=== PATIENT | male | born 1950 | race Caucasian/White ===

== ENCOUNTER 2020-11-28 16:47 | Emergency (ER) | payer MEDICARE ==
[2020-11-28] MEDS ORDERED: HYDROCODONE/APAP 7.5/325 MG TAB ONE (19:52)
[2020-11-28] MEDS ORDERED: TETANUS & DIPHTHERIA TOX,ADULT 0.5 ML VIAL ONE (19:57)
--- NOTE | 2020-11-28 20:12 | RAD REPORT ---
EXAM DESCRIPTION: RAD - Hand Right 3 View - 11/28/2020 8:03 pm CLINICAL HISTORY: PAIN COMPARISON: Hand Right 3 View dated 02/03/2017 FINDINGS: Soft tissue laceration with radiopaque debris noted near the base of the fourth finger. No acute fracture evident.
[2020-11-28] MEDS ORDERED: BUPIVACAINE 0.5% PF 10 ML VIAL ONE (20:14)
[2020-11-28] MEDS ORDERED: LIDOCAINE 1% MPF 5 ML VIAL ONE (20:14)
--- NOTE | 2020-11-28 21:14 | ER ---
Nurse's Notes 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 ca1 Bleeding controlled. Applied dressing at registration. Lac is between ring and middle finger. Coronavirus screen: Client denies travel out of the [place] in the last 14 days. At this time, the client does not indicate any symptoms associated with coronavirus-19. Ebola Screen: Patient negative for fever greater than or equal to 101.5 degrees Fahrenheit, and additional compatible Ebola Virus Disease symptoms Patient denies exposure to infectious person. Patient denies travel to an Ebola-affected area in the 21 days before illness onset. No symptoms or risks identified at this time. Complicating Factors: There are no complicating factors for this patient. Initial Sepsis Screen: Does the patient meet any 2 criteria? No. Patient's initial sepsis screen is negative. Does the patient have a suspected source of infection? No. Patient's initial sepsis screen is negative. Risk Assessment: Do you want to hurt yourself or someone else? Patient reports no desire to harm self or others. Onset of symptoms was November 28, 2020. 17:13 Method Of Arrival: Ambulatory ca1 17:13 Acuity: KARON 4 ca1 Historical: - Allergies: 17:17 No Known Allergies; ca1 - Home Meds: 17:17 memantine oral oral [Active]; ca1 - PMHx: 17:17 None; ca1 - PSHx: 17:17 None; ca1 - Immunization history:: Last tetanus immunization: unknown, Pneumococcal vaccine is not up to date, Flu vaccine is not up to date. - Social history:: Smoking status: Patient denies any tobacco usage or history of. Vital Signs: 17:13 BP 156 / 83; Pulse 59; Resp 16 S; Temp 97.1(TE); Pulse Ox 100% on R/A; Weight 81.65 kg ca1 (R); Height 5 ft. 8 in. (172.72 cm) (R); Pain 7/10; 17:13 Body Mass Index 27.37 (81.65 kg, 172.72 cm) ca1 ED Course: 16:48 Patient arrived in ED. as 17:16 Triage completed. ca1 17:17 Arm band placed on right wrist. ca1 19:22 Derrick Denny PA is PHCP. cp 19:22 Pete Moyer MD is Attending Physician. cp 19:25 Fiona Luna, RN is Primary Nurse. dm5 21:43 Orthoglass splint: Ulnar gutter/Boxer splint applied on right forearm. dh4 Administered Medications: 19:40 Drug: Hydrocodone-Acetaminophen (7.5 mg-325 mg) 1 tabs Route: PO; dm5 19:48 Drug: Tetanus-Diphtheria Toxoid Adult 0.5 ml {[employer]: [employer]. Exp: dm5 02/15/2022. Lot #: [id number]. } Route: IM; Site: right deltoid; 20:00 Drug: Lidocaine (1 %) 10 ml Volume: 20 ml; Route: Infiltration; dm5 20:00 Drug: Marcaine (0.5 %) 10 ml Volume: 10 ml; Route: Infiltration; dm5 21:31 Drug: KeFLEX 500 mg Route: PO; dm5 Outcome: 21:13 Discharge ordered by MD. cp 21:31 Discharged to home ambulatory, with friend. dm5 21:31 Condition: good 21:31 Discharge instructions given to patient, Instructed on discharge instructions, follow up and referral plans. medication usage, Demonstrated understanding of instructions, follow-up care, medications, Prescriptions given X 1. 21:47 Patient left the ED. iw Signatures: Fiona Luna, RN RN Belinda Evans Irene RN RN iw Derrick Denny PA PA cp Acob, Cheryl, RN RN ca1 Luis Otero [facility]
--- NOTE | 2020-11-28 21:14 | EDPHYS ---
Physician Documentation [facility] Name: Howard Arredondo Age: 70 yrs Sex: Male : 1950 Arrival Date: 11/28/2020 Time: 16:48 Bed 12 Private MD: ED Physician Pete Moyer HPI: 11/28 19:30 This 70 yrs old Male presents to ER via Ambulatory with complaints of cp Laceration To Hand. 19:30 The patient has a laceration occurred at home, and from grinding tool. The cp laceration(s) is(are) located on the web space of third and fourth fingers of right hand. Onset: The symptoms/episode began/occurred just prior to arrival. Associated signs and symptoms: Pertinent negatives: heavy bleeding, numbness distal to injury. Historical: - Allergies: 17:17 No Known Allergies; ca1 - Home Meds: 17:17 memantine oral oral [Active]; ca1 - PMHx: 17:17 None; ca1 - PSHx: 17:17 None; ca1 - Immunization history:: Last tetanus immunization: unknown, Pneumococcal vaccine is not up to date, Flu vaccine is not up to date. - Social history:: Smoking status: Patient denies any tobacco usage or history of. ROS: 19:35 Skin: Positive for laceration(s), of the right hand. cp 19:35 Constitutional: Negative for fever. cp 19:35 Neuro: Negative for numbness. 19:35 All other systems are negative. Exam: 19:45 Constitutional: The patient appears in no acute distress, alert, awake, non-toxic, well cp developed, well nourished. 19:45 Musculoskeletal/extremity: Extremities: grossly normal except: noted in the dorsal side cp web space right third and fourth fingers: laceration, Perfusion: the extremity is normally perfused throughout, Sensation intact. Tendon exam: specific tendon testing normal through active and passive range of motion 19:45 Skin: injury, laceration(s), the wound is approximately 3 cm(s), of the dorsal side web space of right third and fourth fingers, that can be described as contaminated, foreign body containing, irregular, with mild bleeding. Vital Signs: 17:13 BP 156 / 83; Pulse 59; Resp 16 S; Temp 97.1(TE); Pulse Ox 100% on R/A; Weight 81.65 kg ca1 (R); Height 5 ft. 8 in. (172.72 cm) (R); Pain 7/10; 17:13 Body Mass Index 27.37 (81.65 kg, 172.72 cm) ca1 Procedures: 21:10 Performed wound irrigation and foreign body removal: Wound irrigated under pressure cp with 1000 mL NS. Multiple small metallic particulate removed. Wound explored. No signs of tendon injury. Laceration: 21:10 Wound Repair of 3cm ( 1.2in ) subcutaneous laceration to dorsal aspect web space of cp third and fourth fingers right hand. Irregularly shaped.. Distal neuro/vascular/tendon intact. Anesthesia: Wound infiltrated with 5 mls of Lido/Marcaine. Wound prep: Extensive cleansing by me, Wound irrigation by me, Particulate matter removal of metal by me, Wound explored moderately. Skin closed with 6 4-0 Prolene using simple sutures and sterile technique. Dressed with Bacitracin, 4x4's. Patient tolerated well. MDM: 19:24 Patient medically screened. cp 20:00 Differential diagnosis: superficial laceration, tendon injury, vascular injury, open cp fracture. 21:12 Data reviewed: vital signs, nurses notes, radiologic studies, plain films, I have cp discussed the patient's presentation/case with the attending Emergency Department Physician; and as a result, I will discharge patient. 21:12 Test interpretation: by ED physician or midlevel provider: xrays of right hand negative cp for fracture, show small radiopaque foreign bodies. 21:12 Counseling: I had a detailed discussion with the patient and/or guardian regarding: the cp historical points, exam findings, and any diagnostic results supporting the discharge/admit diagnosis, lab results, radiology results. 21:12 Response to treatment: the patient's symptoms have markedly improved after treatment, cp and as a result, I will discharge patient. 11/28 19:26 Order name: XRAY Hand RIGHT 3 View cp 11/28 20:13 Order name: RAD EDMS 11/28 19:44 Order name: Dressing - Wound; Complete Time: 21:14 cp 11/28 19:44 Order name: Gloves, Sterile; Complete Time: 21:14 cp 11/28 19:44 Order name: Setup Suture Tray; Complete Time: 21:14 cp 11/28 21:04 Order name: Wound dressing; Complete Time: 21:24 cp 11/28 21:04 Order name: Splint - Ulnar Gutter; Complete Time: 21:24 cp Administered Medications: 19:40 Drug: Hydrocodone-Acetaminophen (7.5 mg-325 mg) 1 tabs Route: PO; dm5 19:48 Drug: Tetanus-Diphtheria Toxoid Adult 0.5 ml {[employer] Of [employer]: [employer]. Exp: dm5 02/15/2022. Lot #: [id number]. } Route: IM; Site: right deltoid; 20:00 Drug: Lidocaine (1 %) 10 ml Volume: 20 ml; Route: Infiltration; dm5 20:00 Drug: Marcaine (0.5 %) 10 ml Volume: 10 ml; Route: Infiltration; dm5 21:31 Drug: KeFLEX 500 mg Route: PO; dm5 Disposition: 21:30 Chart complete. cp 11/29 01:50 Co-signature as Attending Physician, Pete Moyer MD. rn Disposition: 11/28/20 21:13 Discharged to Home. Impression: Laceration with foreign body of right hand. - Condition is Stable. - Discharge Instructions: Laceration Care, Adult. - Prescriptions for Keflex 500 mg Oral Capsule - take 1 capsule by ORAL route every 8 hours for 10 days; 30 capsule. - Medication Reconciliation Form, Thank You Letter, Antibiotic Education, Prescription Opioid Use form. - Follow up: Private Physician; When: 1 - 2 days; Reason: Wound Recheck. - Problem is new. - Symptoms have improved. Signatures: Dispatcher [employer] Fiona Spence RN RN dm5 Khushboo Mcdowell RN RN iw Nieto, Roman, MD MD rn Page, Corey, PA PA cp Sandee Mishra RN LACHO ca1 Corrections: (The following items were deleted from the chart) 11/28 21:47 21:13 11/28/2020 21:13 Discharged to Home. Impression: Laceration with foreign body of iw right hand. Condition is Stable. Forms are Medication Reconciliation Form, Thank You Letter, Antibiotic Education, Prescription Opioid Use. Follow up: Private Physician; When: 1 - 2 days; Reason: Wound Recheck. Problem is new. Symptoms have improved. cp
[2020-11-28] MEDS ORDERED: CEPHALEXIN 250 MG CAP ONE (21:42)
[2020-11-28 23:47] VITALS: BP 156/83; TEMP 97.1; O2SAT 100
== END 2020-11-28 21:47 | disposition home or self-care (01) ==
LOC: ER 16:47
PROC: 0HQFXZZ Repair Right Hand Skin, External Approach (ICD-10-PCS; principal; 2020-11-28)
DX: S61.421A Laceration with foreign body of right hand, initial encounter (principal); Z23 Encounter for immunization; W29.8XXA Contact with other powered hand tools and household machinery, initial encounter
CPT/HCPCS: 90471; 90714; 99283

== ENCOUNTER 2021-03-15 21:33 | Emergency (ER) | payer MEDICARE ==
--- OUTSIDE RECORDS SUMMARY | 2021-03-15 21:36 | XMS REPORT | Continuity of Care Document ---
:1950 Author Organization [facility] t Address [address] [place] [address] Care Team Providers Name Role Phone Unavailable Unavailable Unavailable Payers Payer Name Policy Type Policy Number Effective Date Expiration Date S ource Problems This patient has no known problems. Allergies, Adverse Reactions, Alerts Allergy Allergy Status Severity Reaction(s) Onset Inactive Treating Comm ents Source Name Type Date Date Clinician No Known DA Active U [facility] Allergie 02-28 00:00: [address] Medications This patient has no known medications. Procedures This patient has no known procedures. Results Test Description Test Time Test Comments Results Result Comments Source BASIC METABOLIC PANEL 2021-03-02 09:18:00 Test Item Value Reference Range Interpretation Comme nts SODIUM (test code = NA) 137 MMOL/L 137-145 N POTASSIUM (test code = K) 3.8 MMOL/L 3.5-5.1 N CHLORIDE (test code = CL) 103 MMOL/L 98-107 N CARBON DIOXIDE (test code = CO2) 27 MMOL/L 22-30 N GLUCOSE (test code = GLU) 108 MG/DL 74-106 H BLOOD UREA NITROGEN (test code = 17 MG/DL 9-20 N BUN) GLOMERULAR FILTRATION RATE (test > 60 Reporting units: ml/min/1.73 code = GFR) m2 (Modified M DRD Formula)Referen ce Range: > or = 60 ml/min/1.7 3 m2 CREATININE (test code = CREAT) 0.90 MG/DL 0.66-1.25 N CALCIUM (test code = CA) 8.2 MG/DL 8.4-10.2 L PATIENT IS A HARD STICK. UNABLE TO GET BLOOD SAMPLE.NOTIFIED PATIENT CARE STAFF: ON 03/02/21 AT 06[facility] Z.LAB.CGCBC W/AUTO [id number] 08:39:00 Test Item Value Reference Range Interpretation Comments WHITE BLOOD CELL (test code = 11.5 K/MM3 3.8-9.8 H WBC) RED BLOOD CELL (test code = 3.97 M/MM3 3.95-5.67 N RBC) HEMOGLOBIN (test code = HGB) 13.0 G/DL 12.4-16.7 N HEMATOCRIT (test code = HCT) 38.3 % 35.9-49.5 N MEAN CELL VOLUME (test code = 97 fL 81.7-96.1 H MCV) MEAN CELL HGB (test code = MCH) 32.7 pg 27.6-33.2 N MEAN CELL HGB CONCETRATION 33.9 % 32.9-35.5 N (test code = MCHC) RED CELL DISTRIBUTION WIDTH 12.6 % 12.1-15.2 N (test code = RDW) PLATELET COUNT (test code = 131 K/MM3 129-368 N PLT) MEAN PLATELET VOLUME (test code 10.6 fl 7.4-10.4 H = MPV) NEUTROPHIL % (test code = NT%) 66.8 % 43-75 N IMMATURE GRANULOCYTE % (test 0.2 % 0.0-2.0 N code = IG%) LYMPHOCYTE % (test code = LY%) 21.3 % 14-44 N MONOCYTE % (test code = MO%) 10.5 % 4-13 N EOSINOPHIL % (test code = EO%) 0.9 % 0-6 N BASOPHIL % (test code = BA%) 0.3 % 0-2 N NUCLEATED RBC % (test code = 0.0 % 0-1.0 N NRBC%) NEUTROPHIL # (test code = NT#) 7.70 K/mm3 2.0-7.6 H IMMATURE GRANULOCYTE # (test 0.02 x10 3/uL 0-0.03 N code = IG#) LYMPHOCYTE # (test code = LY#) 2.45 K/mm3 1.0-3.8 N MONOCYTE # (test code = MO#) 1.21 K/mm3 0.1-0.8 H EOSINOPHIL # (test code = EO#) 0.10 K/mm3 0.0-0.2 N BASOPHIL # (test code = BA#) 0.03 K/mm3 0.0-0.2 N NUCLEATED RBC # (test code = 0.00 K/mm3 0.0-0.1 N NRBC#) [id number] 08:10:00 Test Item Value Reference Range Interpretation Comments ACT-ISTAT (test code = ACTI) 263 SEC 74-137 H [id number] 07:58:00 Test Item Value Reference Range Interpretation Comments ACT-ISTAT (test code = ACTI) 169 SEC 74-137 H BASIC METABOLIC [id number] 06:45:00 Test Item Value Reference Range Interpretation Comments SODIUM (test code = 141 MMOL/L 137-145 N NA) POTASSIUM (test code = 3.9 MMOL/L 3.5-5.1 N K) CHLORIDE (test code = 104 MMOL/L 98-107 N CL) CARBON DIOXIDE (test 28 MMOL/L 22-30 N code = CO2) GLUCOSE (test code = 114 MG/DL 74-106 H GLU) BLOOD UREA NITROGEN 24 MG/DL 9-20 H (test code = BUN) GLOMERULAR FILTRATION > 60 Report ing units: RATE (test code = GFR) ml/mi n/1.73 m2 (Modified MDRD Formula)Referen ce Range: > or = 6 0 ml/min/1.73 m2 CREATININE (test code 1.00 MG/DL 0.66-1.25 N = CREAT) CALCIUM (test code = 8.9 MG/DL 8.4-10.2 N CA) LIPID PROFILE (CORONARY RISK)2021-03-01 06:45:00 Test Item Value Reference Range Interpretation Comments TRIGLYCERIDES (test 165 MG/DL TRIGLYCE RIDES code = TRIG) REFERENCE RANGE:Normal: < 150 mg/dLBorderline High: 150-199 mg/dLHi gh: 200-499 mg/dLVe ry High: >=500 mg/ dL CHOLESTEROL (test code 134 MG/DL <200 = CHOL) HDL CHOLESTEROL (test 30 MG/DL 40-59 L code = HDL) LIPOPROTEIN LDL (test 76 MG/DL 0-99 N code = LDL) OPTIMAL........ .<100 mg/dLNEAR OPTIMAL/ABOVE OPTIMAL........ .100-12 9 mg/dL BORDERLINE HIGH.........13 0-159 mg/dL HIGH.........16 0-189 mg/dL VERY HIGH...... ...>/= 190 mg/dL [id number] 06:45:00 Test Item Value Reference Range Interpretation Comments MAGNESIUM (test code = MAG) 2.3 MG/DL 1.6-2.3 N PROTHROMBIN [id number] 06:40:00 Test Item Value Reference Range Interpretation Comments PROTHROMBIN TIME PATIENT 11.1 9.5-12.7 N (test code = PTP) INTERNATIONAL NORMAL RATIO 1.0 0.86-1.14 N T he INR is to be used (test code = INR) only for m onitoring oral anticoagulantth erapy. INDICATION INR VALUE ------- ------- -----1. Prophylaxis, d eep venous thrombos is, including high risk surgery. 2.0 - 3.0 2. Prophylaxis, de ep venous thrombos is, hip surgery, tr eatment for deep venous thrombosis or pulmonary preve ntion of systemic embolism in pat ients with valvula r heart disease, atrial fibrillation, tissue heart va lve, or acute myocardia l infarction. 2.0 - 3.0 3. Mechanical pros thesis heart valves, recurrent syste james embolism. 3.0 - 4.5 PTT [id number] 06:40:00 Test Item Value Reference Range Interpretation Comments PTT ACTIVATED (test code = APTT) 36.3 SECONDS 25.1-36.5 N BASIC METABOLIC [id number] 06:35:00 Test Item Value Reference Range Interpretation Comments SODIUM (test code = 141 MMOL/L 137-145 N NA) POTASSIUM (test code = 3.9 MMOL/L 3.5-5.1 N K) CHLORIDE (test code = 104 MMOL/L 98-107 N CL) CARBON DIOXIDE (test 28 MMOL/L 22-30 N code = CO2) GLUCOSE (test code = 114 MG/DL 74-106 H GLU) BLOOD UREA NITROGEN 24 MG/DL 9-20 H (test code = BUN) GLOMERULAR FILTRATION > 60 Report ing units: RATE (test code = GFR) ml/mi n/1.73 m2 (Modified MDRD Formula)Referen ce Range: > or = 6 0 ml/min/1.73 m2 CREATININE (test code 1.00 MG/DL 0.66-1.25 N = CREAT) CALCIUM (test code = 8.9 MG/DL 8.4-10.2 N CA) LIPID PROFILE (CORONARY RISK)2021-03-01 06:35:00 Test Item Value Reference Range Interpretation Comments TRIGLYCERIDES (test 165 MG/DL TRIGLYCE RIDES code = TRIG) REFERENCE RANGE:Normal: < 150 mg/dLBorderline High: 150-199 mg/dLHi gh: 200-499 mg/dLVe ry High: >=500 mg/ dL CHOLESTEROL (test code 134 MG/DL <200 = CHOL) HDL CHOLESTEROL (test 30 MG/DL 40-59 L code = HDL) LIPOPROTEIN LDL (test MG/DL 0-99 code = LDL) [id number] 06:35:00 Test Item Value Reference Range Interpretation Comments MAGNESIUM (test code = MAG) 2.3 MG/DL 1.6-2.3 N CBC W/AUTO [id number] 06:16:00 Test Item Value Reference Range Interpretation Comments WHITE BLOOD CELL (test code = 8.5 K/MM3 3.8-9.8 N WBC) RED BLOOD CELL (test code = 4.38 M/MM3 3.95-5.67 N RBC) HEMOGLOBIN (test code = HGB) 14.1 G/DL 12.4-16.7 N HEMATOCRIT (test code = HCT) 42.4 % 35.9-49.5 N MEAN CELL VOLUME (test code = 97 fL 81.7-96.1 H MCV) MEAN CELL HGB (test code = MCH) 32.2 pg 27.6-33.2 N MEAN CELL HGB CONCETRATION 33.3 % 32.9-35.5 N (test code = MCHC) RED CELL DISTRIBUTION WIDTH 12.7 % 12.1-15.2 N (test code = RDW) PLATELET COUNT (test code = 151 K/MM3 129-368 N PLT) MEAN PLATELET VOLUME (test code 11.0 fl 7.4-10.4 H = MPV) NEUTROPHIL % (test code = NT%) 46.4 % 43-75 N IMMATURE GRANULOCYTE % (test 0.2 % 0.0-2.0 N code = IG%) LYMPHOCYTE % (test code = LY%) 40.0 % 14-44 N MONOCYTE % (test code = MO%) 9.4 % 4-13 N EOSINOPHIL % (test code = EO%) 3.5 % 0-6 N BASOPHIL % (test code = BA%) 0.5 % 0-2 N NUCLEATED RBC % (test code = 0.0 % 0-1.0 N NRBC%) NEUTROPHIL # (test code = NT#) 3.93 K/mm3 2.0-7.6 N IMMATURE GRANULOCYTE # (test 0.02 x10 3/uL 0-0.03 N code = IG#) LYMPHOCYTE # (test code = LY#) 3.40 K/mm3 1.0-3.8 N MONOCYTE # (test code = MO#) 0.80 K/mm3 0.1-0.8 N EOSINOPHIL # (test code = EO#) 0.30 K/mm3 0.0-0.2 H BASOPHIL # (test code = BA#) 0.04 K/mm3 0.0-0.2 N NUCLEATED RBC # (test code = 0.00 K/mm3 0.0-0.1 N NRBC#) COVID 19 Asymptomatic IH [id number] 04:35:00 Test Item Value Reference Range Interpretation Comments COVID 19 NEGATIVE Negative "Negative resul ts from Asymptomatic IH AG patients with symptom (test code = onset beyondfiv e days, COVNONPUIAG) should be martha clementina as presumptive, andconfirmation with a molecular assay , if necessary forpa tient management may be performed. Nega tive results do notr ule out COVID-19 and sh ould not be used as the sole basisfor treatm ent or patient managem ent decisions, includinginfect ion control decisio ns. Negative result s should beconsidered in the context of a pa tients recent exposure s,history, and the presenc e of clinical signs and symptomsconsist ent with COVID-19.This t est detects both vi able andnon-viable S ARS-CoV and SARS CoV-2. Test performance dep endson the amount of virus (antigen) in the sample."
[2021-03-15] MEDS ORDERED: LIDOCAINE VISCOUS 2% SOLN 15 ML UDC ONE (22:55)
[2021-03-15 23:36] LABS: Urine Blood Negative (Negative); Urine Glucose Negative (Negative); Urine Protein Negative (Negative); Urine Specific Gravity >=1.030 (1.005-1.030)
--- NOTE | 2021-03-15 23:42 | EDPHYS ---
Physician Documentation [facility] Name: Howard Arredondo Age: 71 yrs Sex: Male : 1950 Arrival Date: 03/15/2021 Time: 21:53 Bed 3 Private MD: ED Physician Jorje Rogers HPI: 03/15 22:41 This 71 yrs old Male presents to ER via Ambulatory with complaints of Urinary mh7 Incontinence. 22:41 The patient presents with urinary symptoms, retention. Onset: The symptoms/episode mh7 began/occurred 2 week(s) ago, and became persistent this morning. Modifying factors: The symptoms are alleviated by Dallas catheter, the symptoms are aggravated by nothing. Associated signs and symptoms: Pertinent negatives: abdominal pain, constipation, diarrhea, dysuria, fever, hematuria, nausea, vomiting. Severity of symptoms: At their worst the symptoms were moderate, this morning, in the emergency department the symptoms are unchanged. 23:36 States that he had urinary retention 2 weeks ago after having a procedure. [place] mh7 catheter was placed then removed 2 days ago. He started to have urinary retention again this morning. Denies any fever, abdominal pain, nausea, vomiting, or other complaints.. Historical: - Allergies: 22:06 No Known Allergies; lm7 - Home Meds: 22:06 losartan 50 mg oral tab 1 tab once daily [Active]; Plavix 75 mg Oral tab 1 tab once lm7 daily [Active]; memantine 5 mg oral tab 2 times per day [Active]; Flomax 0.4 mg Oral cp24 1 cap once daily [Active]; - PMHx: 22:07 High Cholesterol; UTI; Hypertension; enlarged prostate; lm7 - Immunization history:: Client reports receiving the 2nd dose of the Covid vaccine. - Social history:: Smoking status: Patient denies any tobacco usage or history of. ROS: 22:41 Constitutional: Negative for fever, chills, and weight loss, Eyes: Negative for injury, mh7 pain, redness, and discharge, ENT: Negative for injury, pain, and discharge, Neck: Negative for injury, pain, and swelling, Cardiovascular: Negative for chest pain, palpitations, and edema, Respiratory: Negative for shortness of breath, cough, wheezing, and pleuritic chest pain, Abdomen/GI: Negative for abdominal pain, nausea, vomiting, diarrhea, and constipation, Back: Negative for injury and pain, MS/Extremity: Negative for injury and deformity, Skin: Negative for injury, rash, and discoloration, Neuro: Negative for headache, weakness, numbness, tingling, and seizure, Psych: Negative for depression, anxiety, suicide ideation, homicidal ideation, and hallucinations, Allergy/Immunology: Negative for hives, rash, and allergies, Endocrine: Negative for neck swelling, polydipsia, polyuria, polyphagia, and marked weight changes, Hematologic/Lymphatic: Negative for swollen nodes, abnormal bleeding, and unusual bruising. Exam: 22:41 Constitutional: This is a well developed, well nourished patient who is awake, alert, mh7 and in no acute distress. Head/Face: Normocephalic, atraumatic. Eyes: Pupils equal round and reactive to light, extra-ocular motions intact. Lids and lashes normal. Conjunctiva and sclera are non-icteric and not injected. Cornea within normal limits. Periorbital areas with no swelling, redness, or edema. Neck: Trachea midline, no thyromegaly or masses palpated, and no cervical lymphadenopathy. Supple, full range of motion without nuchal rigidity, or vertebral point tenderness. No Meningismus. Chest/axilla: Normal chest wall appearance and motion. Nontender with no deformity. No lesions are appreciated. Cardiovascular: Regular rate and rhythm with a normal S1 and S2. No gallops, murmurs, or rubs. Normal PMI, no JVD. No pulse deficits. Respiratory: Lungs have equal breath sounds bilaterally, clear to auscultation and percussion. No rales, rhonchi or wheezes noted. No increased work of breathing, no retractions or nasal flaring. Abdomen/GI: Soft, non-tender, with normal bowel sounds. No distension or tympany. No guarding or rebound. No evidence of tenderness throughout. Back: No spinal tenderness. No costovertebral tenderness. Full range of motion. Skin: Warm, dry with normal turgor. Normal color with no rashes, no lesions, and no evidence of cellulitis. MS/ Extremity: Pulses equal, no cyanosis. Neurovascular intact. Full, normal range of motion. Neuro: Awake and alert, GCS 15, oriented to person, place, time, and situation. Cranial nerves II-XII grossly intact. Motor strength 5/5 in all extremities. Sensory grossly intact. Cerebellar exam normal. Normal gait. Psych: Awake, alert, with orientation to person, place and time. Behavior, mood, and affect are within normal limits. 23:26 : CVA tenderness, is absent, Bladder: distension, that is mild, tenderness, is not [facility] appreciated. Vital Signs: 21:58 BP 148 / 91; Pulse 85; Resp 16; Temp 97.7; Pulse Ox 98% on R/A; Weight 80.29 kg; Height lm7 5 ft. 8 in. (172.72 cm); Pain 7/10; 03/16 00:15 BP 132 / 78; Pulse 70; Resp 16; Pulse Ox 98% ; ea 03/15 21:58 Body Mass Index 26.91 (80.29 kg, 172.72 cm) 7 MDM: 03/15 23:36 Differential diagnosis: UTI, urinary retention, Dallas catheter problem, urethritis. [facility] Data reviewed: vital signs, nurses notes, lab test result(s), urinalysis. Data interpreted: Pulse oximetry: on room air is 98 %. Interpretation: normal. Counseling: I had a detailed discussion with the patient and/or guardian regarding: the historical points, exam findings, and any diagnostic results supporting the discharge/admit diagnosis, the presence of at least one elevated blood pressure reading (>120/80) during this emergency department visit, lab results, the need for outpatient follow up, a urologist, to return to the emergency department if symptoms worsen or persist or if there are any questions or concerns that arise at home. Response to treatment: the patient's symptoms have resolved after treatment, the patient's blood pressure is in an acceptable range, mental status has returned to baseline, the patient no longer shows bradycardia, the patient is not short of breath, the patient is not tachycardic, the patient's pain is gone, the patient's temperature has normalized. 23:41 Patient medically screened. [facility] 03/15 23:36 Order name: Urine Dipstick-Ancillary; Complete Time: 23:40 [facility] 03/15 22:27 Order name: Dallas; Complete Time: 22:55 [facility] 03/15 23:26 Order name: Urine Dipstick-Ancillary (obtain specimen); Complete Time: 00:01 [facility] 03/15 23:40 Order name: Leg Bag; Complete Time: : [facility] Administered Medications: 22:56 Drug: Viscous Lidocaine Liquid (4 %) 5 ml Route: Mucous Membrane; ea Disposition: 03/15/21 23:41 Discharged to Home. Impression: Urinary Retention. - Condition is Stable. - Discharge Instructions: Acute Urinary Retention, Male, [id number], [place] Catheter Care, Adult, [id number]. - Medication Reconciliation Form, Thank You Letter, Antibiotic Education, Prescription Opioid Use form. - Follow up: Private Physician; When: 1 - 2 days; Reason: Worsening of condition, Recheck today's complaints, Continuance of care, Re-evaluation by your physician. Follow up: Braydon Harris MD; When: 1 - 2 days; Reason: Worsening of condition, Recheck today's complaints. - Problem is an ongoing problem. - Symptoms have improved. Signatures: Dispatcher [employer] EDMT Desiree Ko 7 Vivian Song RN RN ea Holmes, Maurice, MD MD 7 Corrections: (The following items were deleted from the chart) 03/16 00:22 03/15 23:41 03/15/2021 23:41 Discharged to Home. Impression: Urinary Retention. ea Condition is Stable. Forms are Medication Reconciliation Form, Thank You Letter, Antibiotic Education, Prescription Opioid Use. Follow up: Private Physician; When: 1 - 2 days; Reason: Worsening of condition, Recheck today's complaints, Continuance of care, Re-evaluation by your physician. Follow up: Braydon Harris; When: 1 - 2 days; Reason: Worsening of condition, Recheck today's complaints. Problem is an ongoing problem. Symptoms have improved. [facility]
--- NOTE | 2021-03-15 23:42 | ER ---
Nurse's Notes [facility] Name: Howard Arredondo Age: 71 yrs Sex: Male : 1950 Arrival Date: 03/15/2021 Time: 21:53 Bed 3 Private MD: Diagnosis: Urinary Retention Presentation: 03/15 21:58 Chief complaint: Patient states: Pt reports unable to urinate since this morning. lm7 Cardiac 03/01/2021, causey placed at that time, causey removed 2 days ago. HX of enlarged prostate. Coronavirus screen: Client denies travel out of the [place] in the last 14 days. At this time, the client does not indicate any symptoms associated with coronavirus-19. Ebola Screen: Patient negative for fever greater than or equal to 101.5 degrees Fahrenheit, and additional compatible Ebola Virus Disease symptoms Patient denies exposure to infectious person. Patient denies travel to an Ebola-affected area in the 21 days before illness onset. Initial Sepsis Screen: Does the patient meet any 2 criteria? No. Patient's initial sepsis screen is negative. Does the patient have a suspected source of infection? No. Patient's initial sepsis screen is negative. Risk Assessment: Do you want to hurt yourself or someone else?. Onset of symptoms was March 15, 2021 at 08:00. 21:58 Method Of Arrival: Ambulatory lm7 21:58 Acuity: KARON 3 lm7 Triage Assessment: 22:07 General: Appears uncomfortable, Behavior is calm, cooperative, appropriate for age. lm7 Pain: Pain currently is 7 out of 10 on a pain scale. Neuro: Level of Consciousness is awake, alert, obeys commands, Oriented to person, place, time. Respiratory: Respiratory effort is even, unlabored, Respiratory pattern is regular. Derm: Skin is pink, warm \T\ dry. Historical: - Allergies: 22:06 No Known Allergies; lm7 - Home Meds: 22:06 losartan 50 mg oral tab 1 tab once daily [Active]; Plavix 75 mg Oral tab 1 tab once lm7 daily [Active]; memantine 5 mg oral tab 2 times per day [Active]; Flomax 0.4 mg Oral cp24 1 cap once daily [Active]; - PMHx: 22:07 High Cholesterol; UTI; Hypertension; enlarged prostate; lm7 - Immunization history:: Client reports receiving the 2nd dose of the Covid vaccine. - Social history:: Smoking status: Patient denies any tobacco usage or history of. Screenin:17 Abuse screen: Denies threats or abuse. Nutritional screening: No deficits noted. ea Tuberculosis screening: No symptoms or risk factors identified. Fall Risk None identified. Assessment: 22:45 General: Appears uncomfortable, Behavior is calm, cooperative, appropriate for age. ea Pain: Denies pain. Neuro: Level of Consciousness is awake, alert, obeys commands, Oriented to person, place, time. Cardiovascular: Patient's skin is warm and dry. Respiratory: Airway is patent Respiratory effort is even, unlabored, Respiratory pattern is regular, symmetrical. Derm: Skin is pink, warm \T\ dry. 03/16 00:21 Reassessment: Patient and/or family updated on plan of care and expected duration. Pain ea level reassessed. Patient is alert, oriented x 3, equal unlabored respirations, skin warm/dry/pink. Discharge instruction given to patient verbalized the understanding of instruction. Patient states feeling better. Vital Signs: 03/15 21:58 BP 148 / 91; Pulse 85; Resp 16; Temp 97.7; Pulse Ox 98% on R/A; Weight 80.29 kg; Height lm7 5 ft. 8 in. (172.72 cm); Pain 7/10; 03/16 00:15 BP 132 / 78; Pulse 70; Resp 16; Pulse Ox 98% ; ea 03/15 21:58 Body Mass Index 26.91 (80.29 kg, 172.72 cm) lm7 ED Course: 03/15 21:53 Patient arrived in ED. am4 22:02 Triage completed. lm7 22:13 Jorje Rogers MD is Attending Physician. 7 22:17 Patient has correct armband on for positive identification. Bed in low position. Call ea light in reach. Side rails up X2. 22:17 Arm band placed on right wrist. Patient placed in an exam room, on a stretcher, on ea pulse oximetry. 22:21 Vivian Song, LACHO is Primary Nurse. ea 22:54 Causey cath inserted, using sterile technique, 16 Fr., by me, balloon inflated, to ea gravity drainage, returned clear yellow urine. Patient tolerated well. 23:41 Braydon Harris MD is Referral Physician. mh7 03/16 00:01 No provider procedures requiring assistance completed. Patient did not have IV access ea during this emergency room visit. Administered Medications: 03/15 22:56 Drug: Viscous Lidocaine Liquid (4 %) 5 ml Route: Mucous Membrane; ea Outcome: 23:41 Discharge ordered by . mh7 03/16 00:20 Discharged to home ambulatory, with family. ea Condition: stable Instructed on discharge instructions, follow up and referral plans. Demonstrated understanding of instructions, follow-up care. 00:22 Patient left the ED. ea Signatures: Desiree Ko Elena, RN RN ea Holmes, Maurice, MD MD 7 Keshia Monroe 4
[2021-03-16 00:43] VITALS: TEMP 97.7; O2SAT 98
[2021-03-16 00:45] VITALS: BP 132/78
== END 2021-03-16 00:22 | disposition home or self-care (01) ==
LOC: ER 21:33
DX: R33.9 Retention of urine, unspecified (principal); I10 Essential (primary) hypertension; E78.00 Pure hypercholesterolemia, unspecified; Z79.01 Long term (current) use of anticoagulants
CPT/HCPCS: 51702; 81003; 99284